=== PATIENT | male | born 1970 | race Caucasian/White ===

== ENCOUNTER → 2017-08-22 | Outpatient (CLI) | payer OTHER ==
--- NOTE | 2017-08-22 10:23 | MR ---
EXAMINATION TYPE: MR lumbar spine wo con DATE OF EXAM: 08/22/2017 COMPARISON: NONE HISTORY: Low back pain per order. Pain for 15 years into right buttocks and thigh per patient. TECHNIQUE: Multiplanar, multisequence imaging of the lumbar spine is performed without IV contrast. FINDINGS: Sagittal images of the lumbar spine show vertebral body heights to appear satisfactory. The re is straightening of lumbar spine on sagittal images. Multilevel disc desiccation is present. Ther e is moderate to advanced disc space narrowing L2-L3 level and moderate disc space narrowing L4-L5 le manasa. Posterior disc herniations are seen at these levels on sagittal images. There is additional post erior disc herniation noted L1-L2 level on sagittal images. The conus medullaris is slightly low in p osition ending L1-L2 disc space level. No suspicious signal is seen. There is no suspicious clumping of lumbosacral nerve roots. The bone marrow signal intensity shows some heterogeneous endplate change s anteriorly mid lumbar level with mild anterior spurring superior L2 endplate. Axial images show the T12-L1 level to appear within normal limits. Axial images at L1-L2 level show moderate broad-based posterior disc protrusion effacing anterior the alonso sac and mild facet degenerative changes, right greater than left. There is mild left-sided anteri or inferior neural foraminal narrowing. Right-sided neural foramen is patent. Axial images at L2-L3 level show moderate broad disc bulge with a broad-based right paracentral disc protrusion component. This increased signal posteriorly consistent with annular tear. There is efface ment of the anterior thecal sac on axial image 19. Bilateral neural foramina however are patent. Axial images at L3-L4 level show moderate broad disc bulge mildly effacing anterior thecal sac and ca using moderate left and mild right-sided neural foraminal narrowing. Some encroachment on left L3 ner ve is difficult to exclude on sagittal image 4 though this is not as prominent on axial images. Axial images at L4-L5 level are felt within normal limits. Axial images at L5-S1 level show right paracentral disc protrusion mildly effacing anterior thecal sa c on axial image 2. There is additional broad-based right lateral disc protrusion component. Left-yudelka ed neural foramina is patent. Right side shows moderate to severe inferior neural foraminal narrowing encroaching upon along inferior anterior-inferior margin right L5 nerve seen on sagittal images 13 a nd 14. Confirmed on axial image 2. No suspicious retroperitoneal findings are seen. Paraspinal muscle bulk is maintained. IMPRESSION: Loss of normal lumbar lordosis with multilevel degenerative changes as detailed above. At tention to L5-S1 level where disc herniation appears to be encroaching on exiting right L5 nerve.
== END | disposition home or self-care (01) ==
LOC: RADMRIMAIN 07:59
PROVIDERS: ATTEND Psychiatry & Neurology Neurology
DX: M47.816 Spondylosis without myelopathy or radiculopathy, lumbar region (principal)
CPT/HCPCS: 72148

== ENCOUNTER 2020-07-20 12:39 | Inpatient (IN) | payer MEDICAID, OTHER ==
[2020-07-20 14:01] LABS: Amphetamine Screen,Urine Not Detected (NotDetected); Barbiturate Screen,Urine Not Detected (NotDetected); Benzodiazepines Screen,Urine Detected (NotDetected); Cocaine Screen,Urine Not Detected (NotDetected); Methadone Screen, Urine Not Detected (NotDetected); Opiate Screen,Urine Not Detected (NotDetected); Oxycodone Screen, Urine Not Detected (NotDetected); Phencyclidine Screen,Urine Not Detected (NotDetected); Tricyclic Antidepressant,Urine Not Detected (NotDetected); Urn Cannabinoid Scrn Detected (NotDetected)
--- NOTE | 2020-07-20 14:33 | ED ---
General Adult HPI - General Chief complaint: Psychiatric Symptoms Stated complaint: Suicidal Time Seen by Provider: 07/20/20 14:00 Source: patient, RN notes reviewed, old records reviewed Mode of arrival: ambulatory Limitations: no limitations - History of Present Illness Initial comments: This is a 50-year-old male presents emergency department with past medical history significant for depression and anxiety. Patient comes in today stating that he has been thinking more more of suicide. Patient states he is also a heavy drinker. Not is probably his #1 problem. Patient states last week he had was last evening. Patient states he has been and is not seemed most of his kids secondary to his drinking and that depresses them as well. Patient states she is not disabled but he can't find a job. Patient denies any drug use. Patient denies any physical complaints today. - Related Data Home Medications Medication Instructions Recorded Confirmed Atenolol [Tenormin] 50 mg PO DAILY 07/20/20 07/20/20 Benazepril HCl 40 mg PO DAILY 07/20/20 07/20/20 Sertraline HCl [Zoloft] 100 mg PO DAILY 07/20/20 07/20/20 Allergies Allergy/AdvReac Type Severity Reaction Status Date / Time No Known Allergies Allergy Verified 07/20/20 14:51 Review of Systems ROS Statement: Those systems with pertinent positive or pertinent negative responses have been documented in the HPI. ROS Other: All systems not noted in ROS Statement are negative. Past Medical History Past Medical History: Hypertension History of Any Multi-Drug Resistant Organisms: None Reported Past Surgical History: No Surgical Hx Reported Past Psychological History: Depression Smoking Status: Never smoker Past Alcohol Use History: Daily, Heavy Past Drug Use History: None Reported General Exam - General Exam Comments Initial Comments: GENERAL: Patient is well-developed and well-nourished. Patient is nontoxic and well- hydrated and is in no acute distress. ENT: Neck is soft and supple. No significant lymphadenopathy is noted. Oropharynx is clear. Moist mucous membranes. Neck has full range of motion without eliciting any pain. EYES: The sclera were anicteric and conjunctiva were pink and moist. Extraocular movements were intact and pupils were equal round and reactive to light. Eyelids were unremarkable. PULMONARY: Unlabored respirations. Good breath sounds bilaterally. No audible rales rhonchi or wheezing was noted. CARDIOVASCULAR: There is a regular rate and rhythm without any murmurs gallops or rubs. ABDOMEN: Soft and nontender with normal bowel sounds. SKIN: Skin is clear with no lesions or rashes and otherwise unremarkable. NEUROLOGIC: Patient is alert and oriented x3. Cranial nerves II through XII are grossly intact. Motor and sensory are also intact. Normal speech, volume and content. Symmetrical smile. MUSCULOSKELETAL: Normal extremities with adequate strength and full range of motion. No lower extremity swelling or edema. No calf tenderness. LYMPHATICS: No significant lymphadenopathy is noted PSYCHIATRIC: Patient is tearful throughout the interview. Patient is very anxious and does state he is suicidal he has no specific plan Limitations: no limitations Course Vital Signs 07/20/20 12:51 Temperature 98.6 F Pulse Rate 90 Respiratory 18 Rate Blood Pressure 171/97 O2 Sat by Pulse 94 L Oximetry Medical Decision Making - Medical Decision Making EPS evaluated the patient and determined the patient needed admission patient signed in. - Lab Data Lab Results 07/20/20 Range/Units 13:20 Urine Opiates Screen Not Detected (NotDetected) Ur Oxycodone Screen Not Detected (NotDetected) Urine Methadone Screen Not Detected (NotDetected) Ur Propoxyphene Screen Not Detected (NotDetected) Ur Barbiturates Screen Not Detected (NotDetected) U Tricyclic Antidepress Not Detected (NotDetected) Ur Phencyclidine Scrn Not Detected (NotDetected) Ur Amphetamines Screen Not Detected (NotDetected) U Methamphetamines Scrn Not Detected (NotDetected) U Benzodiazepines Scrn Detected H (NotDetected) Urine Cocaine Screen Not Detected (NotDetected) U Marijuana (THC) Screen Detected H (NotDetected) Disposition Clinical Impression: Depression, Acute anxiety Disposition: ADMITTED IP TO THIS HOSP Referrals: John Ortega MD [Primary Care Provider] - 1-2 days Time of Disposition: 15:05
[2020-07-20 15:37] VITALS: RESP 16
[2020-07-20] MEDS ORDERED: LORazepam 1 MG TAB PO STA (15:57)
[2020-07-20] MEDS ORDERED: ACETAMINOPHEN TAB 325 MG TAB PO PRN (17:46)
[2020-07-20] MEDS ORDERED: MAG HYDROX/AL HYDROX/SIMETH 30 ML CUP PO PRN (17:46)
[2020-07-20] MEDS ORDERED: MAGNESIUM HYDROXIDE 2,400 MG/10 ML CUP PO PRN (17:46)
[2020-07-20] MEDS ORDERED: LORazepam 2 MG/ML INJ IM PRN ×2 (17:47)
[2020-07-20] MEDS ORDERED: LORazepam 1 MG TAB PO PRN ×2 (17:47)
[2020-07-20] MEDS ORDERED: HALOPERIDOL LACTATE 5 MG/ML 1 ML VIAL IM PRN (17:55)
[2020-07-20] MEDS ORDERED: haloperidoL 5 MG TAB PO PRN (17:55)
[2020-07-20] MEDS: NICOTINE 14MG/24HR PATCH TRANSDERM SCH (18:46)
[2020-07-21] MEDS: NICOTINE 14MG/24HR PATCH TRANSDERM SCH (09:20)
[2020-07-21] MEDS: atenoloL 50 MG TAB PO SCH (09:20)
[2020-07-21] MEDS: SERTRALINE 100 MG TAB PO SCH (09:20)
[2020-07-21] MEDS: lisinopriL 20 MG TAB PO SCH (09:20)
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
[2020-07-21] MEDS: NALTREXONE HCL 50 MG TAB PO SCH (13:07)
[2020-07-21 13:21] LABS: Basophils % (A) 0 %; Eosinophils # (A) 0.1 k/uL (0-0.7); Eosinophils % (A) 1 %; HCT 47.2 % (39.0-53.0); HGB 15.9 gm/dL (13.0-17.5); Lymphocytes # (A) 1.2 k/uL (1.0-4.8); Lymphocytes % (A) 14 %; MCH 33.4 pg (25.0-35.0); MCHC 33.7 g/dL (31.0-37.0); MCV 99.1 fL (80.0-100.0); Mean Platelet Volume 7.3; Monocytes # (A) 0.5 k/uL (0-1.0); Monocytes % (A) 6 %; Neutrophils # (A) 6.3 k/uL (1.3-7.7); Neutrophils % (A) 78 %; Platelet Count 189 k/uL (150-450); RBC 4.76 m/uL (4.30-5.90); RDW 13.2 % (11.5-15.5); WBC 8.2 k/uL (3.8-10.6)
[2020-07-21 13:38] LABS: ALT 26 U/L (4-49); AST 39 U/L (17-59); African American GFR (CKD) >90 (>60 ml/min/1.73 sqM); Albumin 4.7 g/dL (3.5-5.0); Alkaline Phosphatase 49 U/L (38-126); Anion Gap 9 mmol/L; Blood Urea Nitrogen 16 mg/dL (9-20); Calcium 10.2 mg/dL (8.4-10.2); Carbon Dioxide 27 mmol/L (22-30); Chloride 104 mmol/L (98-107); Glucose 108 mg/dL (74-99); Non-African American GFR(CKD) >90 (>60 ml/min/1.73 sqM); Potassium 5.7 mmol/L (3.5-5.1); Sodium 140 mmol/L (137-145); Total Bilirubin 0.9 mg/dL (0.2-1.3); Total Protein 7.5 g/dL (6.3-8.2)
[2020-07-21] MEDS: traZODone HCL 50 MG TAB PO SCH (20:46)
--- NOTE | 2020-07-21 21:41 | CONS ---
CONSULTATION CHIEF COMPLAINT: Major depression. HISTORY OF PRESENT ILLNESS: This is thought to be another admission for this gentleman who has had some problems with depression in the past. I do not know if he has been on the unit before. He was not available at the time I was on the floor. Review of systems, past medical history, family history, personal and social histories and physical exam are going to be deferred until he is available. He has had some other problems in the past, including bipolar disorder, hypertension, low back pain. When he was last seen in the office, which was in January of 2020, he was on benazepril 40, cyclobenzaprine, atenolol 50 mg once a day, Sertraline 100 mg once a day, and vitamin D. At that time his vital signs were normal. His exam was normal. IMPRESSION: 1. Major depression. 2. Hypertension. 3. Bipolar disorder. 4. Anxiety. PLAN: No particular recommendations regarding this gentleman's care at this time are presented. MMODL / IJN: [id number] /
[2020-07-22] MEDS: MULTIVITAMINS, THERA 1 EACH TAB PO SCH (09:22)
[2020-07-22] MEDS: THIAMINE 100 MG TAB PO SCH (09:22)
[2020-07-22] MEDS: FOLIC ACID 1 MG TAB PO SCH (09:22)
[2020-07-22] MEDS: atenoloL 50 MG TAB PO SCH (09:22)
[2020-07-22] MEDS: SERTRALINE 100 MG TAB PO SCH (09:22)
[2020-07-22] MEDS: NALTREXONE HCL 50 MG TAB PO SCH (09:22)
[2020-07-22] MEDS: lisinopriL 20 MG TAB PO SCH (09:23)
--- NOTE | 2020-07-22 10:04 | P.PN ---
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 Patient appears to have an improvement in his affect this morning and claims that his mood is been gradually getting better. He states that he was feeling anxious this morning and claims that his blood pressure was very elevated. He states that he does not know why this occurred. Patient claims that he did take an Ativan which helped him calm down earlier. He states that he has been trying to go to group and participate as best as he can. He states that he was able to sleep better last night on the trazodone and wants to continue on the same dose. He denied any side effects from the medications. He states that he is able to shower yesterday. At this time patient denies any suicidal or homical ideations, intent or plan. Patient denies any auditory, visual hallucinations and denies any paranoia or delusions. Patient denies any side effects from the medications and has been compliant with meds. He claims that he feels that he does not have any cravings today for alcohol. Mental Status Exam: General Appearance: [Patient appears to be stated age is alert, directable, and cooperative.] Improving hygiene and grooming. Behavior: [Patient is calmly seated without any agitated behavior.] Speech: Patient's speech is fluent and nonpressured. Mood/Affect: Mood is depressed and anxious however is improving mildly, affect is congruent Suicidality/Homicidality: Patient denies having any suicidal or homicidal ideation intent or plan. Perceptions: Patient denies any visual hallucinations [and denies any auditory hallucinations] Though content/process: [There is no evidence of any delusional thought content and thought process is linear and goal-directed.] Memory and concentration: AOX3, grossly intact for the purposes of this session Judgment and insight: Improving mildly Assessment Major depressive disorder, recurrent, severe without psychotic features Alcohol use disorder, currently in withdrawal Plan: -Patient continues to meet criteria for inpatient psychiatric admission for symptom stabilization and safety. Patient has signed [adult voluntary form and] [medication consent] and was placed in patient's chart. -Medications: Continue Zoloft 100 mg daily for mood/anxiety, trazodone 50 mg daily at bedtime for insomnia/mood. Continue with naltrexone 50 mg daily for alcohol cravings. -When necessary Ativan and Haldol for agitation/aggression. -CIWA protocol with Ativan PRN for ETOH withdrawal -Ordered basic met panel for tomorrow as patient's potassium was elevated today. Continue to monitor. -NRT - not needed as patient does not smoke -SW on board for discharge planning. Encouraged the patient to participate in milieu. Likely discharge in 1-2 days.
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
[2020-07-22 17:52] VITALS: TEMP 97.6
[2020-07-22] MEDS: traZODone HCL 50 MG TAB PO SCH (21:41)
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
[2020-07-23] MEDS: THIAMINE 100 MG TAB PO SCH (09:02)
[2020-07-23] MEDS: FOLIC ACID 1 MG TAB PO SCH (09:02)
[2020-07-23] MEDS: SERTRALINE 100 MG TAB PO SCH (09:02)
[2020-07-23] MEDS: NALTREXONE HCL 50 MG TAB PO SCH (09:02)
[2020-07-23] MEDS: MULTIVITAMINS, THERA 1 EACH TAB PO SCH (09:02)
[2020-07-23] MEDS: atenoloL 50 MG TAB PO SCH (09:04)
[2020-07-23] MEDS: lisinopriL 20 MG TAB PO SCH (09:04)
[2020-07-23 09:07] VITALS: BP 155/93; PULSE 130
[2020-07-23 09:33] LABS: African American GFR (CKD) >90 (>60 ml/min/1.73 sqM); Anion Gap 9 mmol/L; Blood Urea Nitrogen 13 mg/dL (9-20); Calcium 9.7 mg/dL (8.4-10.2); Carbon Dioxide 31 mmol/L (22-30); Chloride 102 mmol/L (98-107); Glucose 93 mg/dL (74-99); Non-African American GFR(CKD) 87 (>60 ml/min/1.73 sqM); Potassium 4.1 mmol/L (3.5-5.1); Sodium 142 mmol/L (137-145)
== END 2020-07-23 12:55 | disposition home or self-care (01) | DRG 885 ==
LOC: EC 12:39 → 3MHU 17:40
PROVIDERS: ADMIT Psychiatry & Neurology Psychiatry; ATTEND Psychiatry & Neurology Psychiatry
DX: F31.4 Bipolar disorder, current episode depressed, severe, without psychotic features (principal); F10.239 Alcohol dependence with withdrawal, unspecified; R45.851 Suicidal ideations; Z20.822 Contact with and (suspected) exposure to COVID-19; F41.9 Anxiety disorder, unspecified; I10 Essential (primary) hypertension; G47.00 Insomnia, unspecified; M54.5 Low back pain; S00.81XA Abrasion of other part of head, initial encounter; Z91.5 Personal history of self-harm; Z79.899 Other long term (current) drug therapy; W22.01XA Walked into wall, initial encounter; Z56.0 Unemployment, unspecified
CPT/HCPCS: 80048; 80053; 80306; 82075; 84132; 85025; 87635; 99285

== ENCOUNTER 2021-10-21 07:48 | Day surgery (SDC) | payer OTHER ==
[2021-10-20 11:02] VITALS: BMI 26.6
[2021-10-21 08:30] VITALS: TEMP 96.9
[2021-10-21] MEDS: LACTATED RINGERS 1,000 ML IV SCH ×2 (08:45→09:14)
[2021-10-21] MEDS ORDERED: LIDOCAINE 2% INJ 20 MG/ML (2 ML VIAL) ONE (09:16)
[2021-10-21] MEDS ORDERED: PROPOFOL 10 MG/ML 20 ML VIAL IV ONE (09:16)
--- NOTE | 2021-10-21 09:17 | P.GSHP ---
History of Present Illness H&P Date: 10/21/21 Chief Complaint: Screening colonoscopy This a 51-year-old male presents today for screening colonoscopy. Patient denies any significant GI complaints. Past Medical History Past Medical History: Hypertension History of Any Multi-Drug Resistant Organisms: None Reported Past Surgical History: No Surgical Hx Reported Additional Past Surgical History / Comment(s): TEETH EXTRACTIONS Past Anesthesia/Blood Transfusion Reactions: No Reported Reaction Additional Past Anesthesia/Blood Transfusion Reaction / Comment(s): DENTAL EXTRACTIONS ONLY Smoking Status: Never smoker - Past Family History Mother Family Medical History: No Reported History Medications and Allergies Home Medications Medication Instructions Recorded Confirmed Type Atenolol [Tenormin] 50 mg PO DAILY 07/20/20 10/21/21 History Benazepril HCl 40 mg PO DAILY 07/20/20 10/21/21 History Naltrexone HCl [Revia] 50 mg PO DAILY 30 Days tab 07/23/20 10/21/21 Rx Sertraline HCl [Zoloft] 100 mg PO DAILY 30 Days tab 07/23/20 10/21/21 Rx traZODone HCL [Desyrel] 50 mg PO HS 30 Days tab 07/23/20 10/21/21 Rx Cholecalciferol [Vitamin D3 (25 25 mcg PO DAILY 10/20/21 10/21/21 History Mcg = 1000 Iu)] Allergies Allergy/AdvReac Type Severity Reaction Status Date / Time No Known Allergies Allergy Verified 10/20/21 10:38 Surgical - Exam Vital Signs Temp Pulse Resp BP Pulse Ox 96.9 F L 54 L 18 123/70 99 10/21/21 08:28 10/21/21 08:28 10/21/21 08:28 10/21/21 08:28 10/21/21 08:28 - General well developed, well nourished, no distress - Eyes PERRL - ENT normal pinna - Neck no masses - Respiratory normal expansion - Cardiovascular Rhythm: regular - Abdomen Abdomen: soft, non tender Assessment and Plan Assessment: We'll perform screening colonoscopy.
--- NOTE | 2021-10-21 09:31 | P.OP ---
Date of Procedure: 10/21/21 Preoperative Diagnosis: Screening colonoscopy Postoperative Diagnosis: Normal colonoscopy Procedure(s) Performed: Colonoscopy Anesthesia: MAC Surgeon: Orion Simmons Pathology: none sent Condition: stable Disposition: PACU Description of Procedure: PROCEDURE: The patient was placed on the endoscopy table in the lateral position. Digital rectal examination was performed which revealed no abnormalities. The prostate was symmetrical without nodules. Flexible colonoscope was then placed in the patient's anus and passed throughout the entire colon. The ileocecal valve was visualized. The cecum, ascending, transverse, descending and sigmoid colon were normal. The rectum was normal as well. There were no masses, polyps or diverticula noted in the entire colon. SUMMARY OF FINDINGS: Normal colonoscopy.
[2021-10-21 09:39] VITALS: RESP 16
[2021-10-21 10:01] VITALS: BP 142/80; PULSE 65
== END 2021-10-21 10:20 | disposition home or self-care (01) ==
LOC: ORWHC2ENDO 07:48
PROVIDERS: ATTEND Surgery
DX: Z12.11 Encounter for screening for malignant neoplasm of colon (principal); I10 Essential (primary) hypertension; Z79.899 Other long term (current) drug therapy; Z97.2 Presence of dental prosthetic device (complete) (partial)
CPT/HCPCS: J2704; J2001; G0121